=== PATIENT | female | born 1990 | race Caucasian/White ===

== ENCOUNTER 2020-11-03 20:03 | Inpatient (IN) | payer OTHER ==
[~2020-11-03] VITALS: Ht 165.1 cm; Wt 84.5 kg
[2020-11-03] MEDS ORDERED: FENTANYL PF 100 MCG/2ML IV PRN (21:00)
[2020-11-03] MEDS ORDERED: TERBUTALINE 1 MG/ML, 1ML IVPush PRN (21:00)
[2020-11-03] MEDS ORDERED: OXYTOCIN 30U/ 0.9% NaCL 500ML 500 ML IV ONE (21:00)
[2020-11-03] MEDS: PLEASE ENTER HEIGHT AND WEIGHT MC SCH (21:00)
[2020-11-03] MEDS ORDERED: ONDANSETRON 2MG/ML, 2ML IVPush PRN (21:00)
[2020-11-03] MEDS ORDERED: TERBUTALINE 1 MG/ML, 1ML SQ PRN (21:00)
[2020-11-03 21:02] VITALS: BP 133/93
[2020-11-03 21:12] LABS: BASOPHILS % (AUTO) 0 % (0-1); EOSINOPHILS % (AUTO) 1 % (1-7); LYMPHOCYTES % (AUTO) 13 % (22-44); MEAN CORPUSCULAR HEMOGLOBIN 29.6 pg (27.0-34.8); MEAN CORPUSCULAR HGB CONC 33.3 g/dL (32.4-35.8); MONOCYTES % (AUTO) 6 % (2-9); NEUTROPHILS % (AUTO) 80 % (42-75); PLATELET COUNT 260 x10^3/uL (130-400); RED BLOOD COUNT 4.37 x10^6/uL (3.82-5.3); RED CELL DISTRIBUTION WIDTH 14.1 % (9.6-15.2)
[2020-11-03 21:42] LABS: MD SCAN
[2020-11-04] MEDS ORDERED: NEWBORN KIT ONE (02:08)
[2020-11-04] MEDS ORDERED: OXYTOCIN 30U/ 0.9% NaCL 500ML 500 ML ONE (02:09)
[2020-11-04] MEDS: PLEASE ENTER HEIGHT AND WEIGHT MC SCH ×2 (05:00→13:00)
[2020-11-04] MEDS: FENTANYL PF 100 MCG/2ML IVPush PRN ×3 (05:03→07:16)
[2020-11-04] MEDS ORDERED: LIDOCAINE 1%, 20ML ONE (07:00)
[2020-11-04] MEDS ORDERED: MISOPROSTOL 200 MCG TABLET ONE (07:00)
[2020-11-04] MEDS ORDERED: IBUPROFEN 600 MG TABLET ONE (09:24)
[2020-11-04] MEDS: IBUPROFEN 600 MG TABLET PO PRN ×2 (09:26→15:10)
[2020-11-04] MEDS ORDERED: ACETAMINOPHEN 325 MG TABLET PO PRN (09:30)
[2020-11-04] MEDS ORDERED: HYDROcodone/APAP 5/325 TABLET PO PRN (09:30)
[2020-11-04] MEDS ORDERED: ONDANSETRON 2MG/ML, 2ML IV PRN (09:30)
[2020-11-04] MEDS ORDERED: BISACODYL 10 MG SUPP PR PRN (09:30)
[2020-11-04] MEDS ORDERED: CARBOPROST TROMETHAMINE 250 MCG/ML, 1ML IM PRN (09:30)
[2020-11-04] MEDS ORDERED: OXYTOCIN 30U/ 0.9% NaCL 500ML 500 ML IV SCH (09:30)
[2020-11-04] MEDS ORDERED: SIMETHICONE 80 MG CHEW TAB PO PRN (09:30)
[2020-11-04] MEDS ORDERED: MISOPROSTOL 200 MCG TABLET PR PRN (09:30)
[2020-11-04] MEDS ORDERED: METHYLERGONOVINE 0.2 MG/ML IM PRN (09:30)
[2020-11-04] MEDS ORDERED: PRENATAL VIT/IRON/FA 1 EACH TABLET ONE (11:17)
[2020-11-04 11:20] VITALS: BP 116/77
[2020-11-04] MEDS: HYDROcodone/APAP 5/325 TABLET PO PRN ×3 (11:23→19:34)
[2020-11-04] MEDS: PRENATAL VIT/IRON/FA 1 EACH TABLET PO SCH (11:24)
[2020-11-04] MEDS: DOCUSATE 100 MG CAPSULE PO PRN ×2 (11:24→19:34)
[2020-11-04 16:17] VITALS: BP 117/71
[2020-11-04 20:21] VITALS: BP 114/79
[2020-11-05 00:01] VITALS: BP 119/83
[2020-11-05 01:10] LABS: BASOPHILS % (AUTO) 0 % (0-1); EOSINOPHILS % (AUTO) 1 % (1-7); LYMPHOCYTES % (AUTO) 14 % (22-44); MEAN CORPUSCULAR HEMOGLOBIN 29.9 pg (27.0-34.8); MEAN CORPUSCULAR HGB CONC 33.3 g/dL (32.4-35.8); MEAN PLATELET VOLUME 9.8 fL (7.4-10.4); MONOCYTES % (AUTO) 8 % (2-9); NEUTROPHILS % (AUTO) 77 % (42-75); PLATELET COUNT 217 x10^3/uL (130-400); RED BLOOD COUNT 3.33 x10^6/uL (3.82-5.3)
[2020-11-05 01:41] LABS: MD SCAN
[2020-11-05] MEDS: IBUPROFEN 600 MG TABLET PO PRN ×2 (02:26→08:42)
[2020-11-05 03:38] VITALS: BP 114/77
[2020-11-05 08:40] VITALS: BP 114/77
[2020-11-05] MEDS: DOCUSATE 100 MG CAPSULE PO PRN (08:41)
[2020-11-05] MEDS: PRENATAL VIT/IRON/FA 1 EACH TABLET PO SCH (08:41)
[2020-11-05] MEDS: HYDROcodone/APAP 5/325 TABLET PO PRN ×2 (08:42→12:49)
[2020-11-05] MEDS ORDERED: IBUP-1222 PO (11:52)
[2020-11-05] MEDS ORDERED: DOCU-131 PO (11:54)
== END 2020-11-05 13:20 | disposition home or self-care (01) | DRG 807 ==
LOC: LDOP 20:03 → LDIP 20:20 → 2NW 11-04 10:56
PROVIDERS: ADMIT Obstetrics & Gynecology Maternal & Fetal Medicine; ATTEND Obstetrics & Gynecology Maternal & Fetal Medicine
PROC: 10E0XZZ Delivery of Products of Conception, External Approach (ICD-10-PCS; principal; 2020-11-04)
PROC: 0KQM0ZZ Repair Perineum Muscle, Open Approach (ICD-10-PCS; 2020-11-04)
PROC: 10907ZC Drainage of Amniotic Fluid, Therapeutic from Products of Conception, Via Natural or Artificial Opening (ICD-10-PCS; 2020-11-04)
DX: O70.1 Second degree perineal laceration during delivery (principal); Z37.0 Single live birth; Z20.822 Contact with and (suspected) exposure to COVID-19; Z3A.40 40 weeks gestation of pregnancy; Z88.0 Allergy status to penicillin; Z88.8 Allergy status to other drugs, medicaments and biological substances
CPT/HCPCS: 36415; 85025; 86592; 86850; 86900; 87635; G0378; J3010; J2590

== ENCOUNTER 2021-01-03 16:35 | Emergency (ER) | payer OTHER ==
[~2021-01-03] VITALS: Ht 165.1 cm; Wt 79.5 kg
[~2021-01-03 16:35] MED LIST: DOCU-131 PO; IBUP-1222 PO
--- NOTE | 2021-01-03 17:08 | NUR ---
AUTOMOTIVE ENGINEERING TECHNICIAN: PT TO ROOM FROM [facility]
--- NOTE | 2021-01-03 17:15 | NUR ---
CC LEFT BREAST MASTITIS WITH GREEN AND YELLOW PUS DRAINAGE, + N/V. HAS SEEN [facility] AND STARTED ON ABX, HX OF SAME 6 WEEKS AGO. DELIVERED BABY 8 1/2 WEEKS AGO. HAS HAD SURGERY ON THAT SAME BREAST WITH RECONSTRUCTED SURGERY. ALSO STATES "NOT ALL DUCTS WILL DRAIN, SOME HAVE ENDS AFTER THE SURGERY". FAMILY AT BEDSIDE
[2021-01-03] MEDS ORDERED: HYDROcodone/APAP 5/325 TABLET ONE (17:44)
[2021-01-03] MEDS ORDERED: ONDANSETRON ODT 4 MG ONE ×2 (17:44→18:51)
[2021-01-03] MEDS ORDERED: HYDROcodone/APAP 5/325 TABLET PO ONE (18:00)
[2021-01-03] MEDS ORDERED: ONDANSETRON ODT 4 MG PO ONE ×2 (18:00→19:00)
--- NOTE | 2021-01-03 18:10 | NUR ---
PT WANTS PAIN MED IN ORDER TO HAVE US DONE (NOT ALLOWED TO TOUCH) - US DELAY
[2021-01-03 18:30] VITALS: BP 107/67
[2021-01-03] MEDS ORDERED: PROMETHAZINE 25 MG/ML, 1ML ONE (18:30)
[2021-01-03] MEDS ORDERED: PROMETHAZINE 25 MG/ML, 1ML IM ONE (18:30)
--- NOTE | 2021-01-03 20:54 | NUR ---
dc home with instruct, pt verbalizes understanding of instruct and f/u. to return to er if worse or concerns.
== END 2021-01-03 21:19 | disposition home or self-care (01) ==
LOC: ED 20:58
DX: N61.1 Abscess of the breast and nipple (principal); R00.0 Tachycardia, unspecified; Z88.0 Allergy status to penicillin; Z88.1 Allergy status to other antibiotic agents; Z91.018 Allergy to other foods
CPT/HCPCS: 76642; 93005; 99284; Q0162